=== PATIENT | female | born 1960 | race Caucasian/White ===

== ENCOUNTER 2016-07-22 13:40 | Emergency (ER) | payer BC ==
[2016-07-22 15:21] LABS: ALBUMIN 4.7 g/dL (3.4-5.0); ALKALINE PHOSPHATASE 108 U/L (46-116); ALT (SGPT) 38 U/L (10-68); CALC OSMOLALITY 277 mosm/kg (275-300); CALCIUM 9.9 mg/dL (8.5-10.1); CARBON DIOXIDE 30.7 mmol/L (21.0-32.0); CHLORIDE - SERUM 101 mmol/L (98-107); CREATININE - SERUM 0.9 mg/dL (0.6-1.3); GLUCOSE 92 mg/dL (74-106); POTASSIUM - SERUM 3.5 mmol/L (3.5-5.1); PROTEIN - SERUM 8.1 g/dL (6.4-8.2); SODIUM 139 mmol/L (136-145); UREA NITROGEN 13 mg/dL (7-18); eGFR NON AFRICAN AMERICAN 69 mL/min (90-120)
[2016-07-22 15:26] LABS: BASOPHILS 0.3 % (0.0-2.0); HEMATOCRIT 46.3 % (36.0-48.0); HEMOGLOBIN 15.5 g/dL (12-16); IMMATURE GRANULOCYTES 0.3 % (0-5); LYMPHOCYTES 30.8 % (15-50); MCH 30.3 pg (26.0-34.0); MCHC 33.5 g/dL (31.0-37.0); MCV 90.6 fL (80.0-100.0); MEAN PLATELET VOLUME 10.8 fL (7.4-10.4); MONOCYTES 8.2 % (2-11); NEUTROPHILS 59.4 % (40-80); PLATELET COUNT 282 10x3/uL (130-400); RBC 5.11 10x6/uL (4.00-5.40); RDW 12.6 % (11.5-14.5); WBC 7.1 10x3/uL (4.8-10.8)
[2016-07-22 15:30] LABS: CREATINE KINASE 100 UL (21-215); T4 THYROXINE 7.8 ug/dL (4.7-13.3); THYROID STIMULATING HORMONE 1.78 uIU/mL (0.36-3.74)
[2016-07-22 15:38] LABS: TROPONIN-I < 0.017 ng/mL (0.000-0.060)
[2016-07-22 15:54] LABS: T4 THYROXIN - FREE 1.04 ng/dL (0.76-1.46)
== END 2016-07-22 16:10 | disposition home or self-care (01) ==
LOC: D.ER 13:40
PROVIDERS: Nurse Practitioner Family
DX: R51 Headache (principal); I10 Essential (primary) hypertension